=== PATIENT | female | born 1955 | race Caucasian/White ===

== ENCOUNTER 2019-11-25 15:34 | Emergency (ER) | payer MEDICARE | END 2019-11-25 16:15 | disposition home or self-care (01) | LOC: MADERS 15:34 | DX: H74.8X1 Other specified disorders of right middle ear and mastoid (principal); I10 Essential (primary) hypertension; J44.9 Chronic obstructive pulmonary disease, unspecified; F17.210 Nicotine dependence, cigarettes, uncomplicated; Z86.73 Personal history of transient ischemic attack (TIA), and cerebral infarction without residual deficits; Z79.899 Other long term (current) drug therapy | CPT/HCPCS: 99282 ==